=== PATIENT | female | born 1995 | race African-American/Black ===

== ENCOUNTER 2016-10-31 07:48 | Emergency (ER) | payer MEDICAID, OTHER ==
[~2016-10-31] VITALS: Ht 165.1 cm; Wt 89.0 kg
[2016-10-31] MEDS ORDERED: KETOROLAC 60MG/2ML VIAL IM ONE (09:30)
[2016-10-31 10:22] VITALS: BP 113/68
== END 2016-10-31 12:19 | disposition home or self-care (01) ==
LOC: ER 07:51
DX: S00.511A Abrasion of lip, initial encounter (principal); M54.5 Low back pain; M54.2 Cervicalgia; F17.210 Nicotine dependence, cigarettes, uncomplicated; V43.52XA Car driver injured in collision with other type car in traffic accident, initial encounter; Y93.89 Activity, other specified; Y92.488 Other paved roadways as the place of occurrence of the external cause
CPT/HCPCS: 72100; 72131; 81025; 96372; 99284; J1885; Z7610

== ENCOUNTER 2018-05-07 05:54 | Emergency (ER) | payer MEDICAID, OTHER ==
[~2018-05-07] VITALS: Ht 165.1 cm; Wt 88.8 kg
[2018-05-07 06:22] VITALS: BP 112/78
== END 2018-05-07 10:39 | disposition left against medical advice (07) ==
LOC: ER 06:52
DX: S61.512A Laceration without foreign body of left wrist, initial encounter (principal); W26.0XXA Contact with knife, initial encounter; Y93.89 Activity, other specified; Y92.89 Other specified places as the place of occurrence of the external cause; Y99.8 Other external cause status; Z53.21 Procedure and treatment not carried out due to patient leaving prior to being seen by health care provider

== ENCOUNTER 2018-11-19 10:31 | Emergency (ER) | payer SELFPAY ==
[~2018-11-19] VITALS: Ht 165.1 cm; Wt 102.0 kg
[2018-11-19 11:50] VITALS: BP 132/90
== END 2018-11-19 12:14 | disposition home or self-care (01) ==
LOC: ER 11:01
DX: J06.9 Acute upper respiratory infection, unspecified (principal); F12.10 Cannabis abuse, uncomplicated
CPT/HCPCS: 87070; 87430; 99283; Z7610

== ENCOUNTER 2019-06-07 17:06 | Emergency (ER) | payer SELFPAY ==
[~2019-06-07] VITALS: Ht 165.1 cm; Wt 82.0 kg
[2019-06-07] MEDS ORDERED: ACETAMINOPHEN 650MG/20.3ML UDC PO STA (20:27)
[2019-06-07 20:57] VITALS: BP 132/84
[2019-06-07] MEDS ORDERED: KETOROLAC 30MG/ML VIAL IV STA (20:58)
[2019-06-07] MEDS ORDERED: MAGNESIUM/ALUMINUM HYDROXIDE/SIMETHICONE 30ML UDC PO STA (20:58)
[2019-06-07] MEDS ORDERED: VISCOUS LIDOCAINE 2% 15 ML UDC PO STA (20:58)
== END 2019-06-07 20:58 | disposition home or self-care (01) ==
LOC: ER 17:06
DX: S00.93XA Contusion of unspecified part of head, initial encounter (principal); S43.401A Unspecified sprain of right shoulder joint, initial encounter; W10.9XXA Fall (on) (from) unspecified stairs and steps, initial encounter; Y93.9 Activity, unspecified; Y92.9 Unspecified place or not applicable
CPT/HCPCS: 99282

== ENCOUNTER 2019-12-26 20:45 | Emergency (ER) | payer MEDICAID ==
[~2019-12-26] VITALS: Ht 165.1 cm; Wt 91.0 kg
[2019-12-26 21:04] VITALS: BP 111/42
[2019-12-26 21:32] LABS: CLARITY URINE CLEAR (CLEAR); COLOR URINE YELLOW (YELLOW); KETONES URINE NEGATIVE (NEGATIVE); LEUKOCYTE ESTERASE URINE NEGATIVE (NEGATIVE); NITRITE URINE NEGATIVE (NEGATIVE); OCCULT BLOOD URINE 1+ (NEGATIVE); PH URINE 6.5 (4.5-8.0); PROTEIN URINE NEGATIVE (NEGATIVE); SPECIFIC GRAVITY URINE 1.006 (1.005-1.030); UROBILINOGEN URINE 0.2 E.U./dL (0.2-1.0)
[2019-12-26 22:32] LABS: BASOPHILS % 0.7 % (0.0-2.0); EOSINOPHILS % 5.6 % (0.0-5.0); HEMATOCRIT. 37.1 % (36.0-48.0); HEMOGLOBIN. 12.4 g/dL (12.0-16.0); LYMPHOCYTES % 30.3 % (20.0-50.0); MEAN CORPUSCULAR HEMOGLOBIN 30.4 pg (28.0-32.0); MEAN CORPUSCULAR VOLUME 91.1 fL (81.0-99.0); MEAN PLATELET VOLUME 8.1 fl (7.4-10.4); MONOCYTES % 8.8 % (2.0-8.0); NEUTROPHILS % 54.6 % (40.0-76.0); PLATELET 220 x1000/uL (130-400); RED BLOOD CELL COUNT 4.07 mill/uL (4.2-5.4); RED CELL DISTRIBUTION WIDTH 13.4 % (11.6-14.6)
[2019-12-26 22:50] LABS: CHLORIDE 108 mEq/L (98-107)
[2019-12-26 23:23] LABS: B-HCG QUANTITATIVE 41356 mIU/mL (<3)
== END 2019-12-26 23:39 | disposition home or self-care (01) ==
LOC: ER 20:45
DX: O20.0 Threatened abortion (principal); O26.891 Other specified pregnancy related conditions, first trimester; Z3A.01 Less than 8 weeks gestation of pregnancy
CPT/HCPCS: 36415; 76801; 80053; 81003; 81025; 84702; 85025; 86850; 86900; 99284

== ENCOUNTER 2020-01-09 07:05 | Emergency (ER) | payer MEDICAID ==
[~2020-01-09] VITALS: Ht 165.1 cm; Wt 92.0 kg
[2020-01-09] MEDS ORDERED: ACETAMINOPHEN 325MG TABLET PO PRN (07:45)
[2020-01-09 08:05] LABS: CLARITY URINE CLOUDY (CLEAR); COLOR URINE YELLOW (YELLOW); KETONES URINE NEGATIVE (NEGATIVE); LEUKOCYTE ESTERASE URINE NEGATIVE (NEGATIVE); NITRITE URINE NEGATIVE (NEGATIVE); OCCULT BLOOD URINE 3+ (NEGATIVE); PROTEIN URINE NEGATIVE (NEGATIVE); SPECIFIC GRAVITY URINE 1.018 (1.005-1.030); UROBILINOGEN URINE 0.2 E.U./dL (0.2-1.0)
[2020-01-09 08:09] LABS: BASOPHILS % 0.4 % (0.0-2.0); EOSINOPHILS % 5.6 % (0.0-5.0); HEMATOCRIT. 35.6 % (36.0-48.0); HEMOGLOBIN. 11.8 g/dL (12.0-16.0); MEAN CORPUSCULAR HEMOGLOBIN 29.8 pg (28.0-32.0); MEAN CORPUSCULAR VOLUME 90.2 fL (81.0-99.0); MEAN PLATELET VOLUME 7.9 fl (7.4-10.4); MONOCYTES % 7.5 % (2.0-8.0); NEUTROPHILS % 60.5 % (40.0-76.0); PLATELET 235 x1000/uL (130-400); RED BLOOD CELL COUNT 3.95 mill/uL (4.2-5.4); RED CELL DISTRIBUTION WIDTH 13.2 % (11.6-14.6)
[2020-01-09 08:14] LABS: CHLORIDE 107 mEq/L (98-107)
[2020-01-09 08:37] LABS: B-HCG QUANTITATIVE 75628 mIU/mL (<3)
[2020-01-09 10:03] VITALS: BP 108/61
== END 2020-01-09 10:05 | disposition home or self-care (01) ==
LOC: ER 07:05
DX: O20.0 Threatened abortion (principal); O26.891 Other specified pregnancy related conditions, first trimester; Z3A.08 8 weeks gestation of pregnancy
CPT/HCPCS: 36415; 76801; 80053; 81003; 81025; 84702; 85025; 86850; 86900; 93005; 99285

== ENCOUNTER 2020-01-31 22:17 | Emergency (ER) | payer MEDICAID ==
[~2020-01-31] VITALS: Ht 165.1 cm; Wt 92.0 kg
[2020-01-31 23:49] LABS: BASOPHILS % 0.6 % (0.0-2.0); EOSINOPHILS % 4.3 % (0.0-5.0); HEMATOCRIT. 33.5 % (36.0-48.0); HEMOGLOBIN. 11.3 g/dL (12.0-16.0); LYMPHOCYTES % 27.6 % (20.0-50.0); MEAN CORPUSCULAR HEMOGLOBIN 30.6 pg (28.0-32.0); MEAN CORPUSCULAR VOLUME 90.4 fL (81.0-99.0); MEAN PLATELET VOLUME 8.1 fl (7.4-10.4); MONOCYTES % 7.5 % (2.0-8.0); PLATELET 236 x1000/uL (130-400); RED CELL DISTRIBUTION WIDTH 13.5 % (11.6-14.6)
[2020-01-31 23:53] LABS: CHLORIDE 110 mEq/L (98-107)
[2020-02-01 00:31] LABS: B-HCG QUANTITATIVE 41347 mIU/mL (<3)
[2020-02-01 00:50] LABS: CLARITY URINE CLEAR (CLEAR); COLOR URINE YELLOW (YELLOW); KETONES URINE NEGATIVE (NEGATIVE); LEUKOCYTE ESTERASE URINE NEGATIVE (NEGATIVE); NITRITE URINE NEGATIVE (NEGATIVE); OCCULT BLOOD URINE NEGATIVE (NEGATIVE); PH URINE 6.5 (4.5-8.0); PROTEIN URINE NEGATIVE (NEGATIVE); SPECIFIC GRAVITY URINE 1.029 (1.005-1.030); UROBILINOGEN URINE 0.2 E.U./dL (0.2-1.0)
[2020-02-01 01:02] LABS: *COCAINE SCREEN URINE NEGATIVE (NEGATIVE); CANNABINOID URINE SCREEN NEGATIVE (NEGATIVE); METHADONE URINE SCREEN NEGATIVE (NEGATIVE); OPIATES URINE SCREEN NEGATIVE (NEGATIVE); PHENCYCLIDINE URINE SCREEN NEGATIVE (NEGATIVE)
[2020-02-01 01:03] LABS: *AMPHETAMINES SCREEN URINE NEGATIVE (NEGATIVE); *BARBITURATES SCREEN URINE NEGATIVE (NEGATIVE)
[2020-02-01 01:05] LABS: *BENZODIAZEPINES SCREEN URINE NEGATIVE (NEGATIVE)
[2020-02-01 02:21] VITALS: BP 118/61
== END 2020-02-01 02:30 | disposition home or self-care (01) ==
LOC: ER 22:41
DX: O20.0 Threatened abortion (principal); Z3A.12 12 weeks gestation of pregnancy
CPT/HCPCS: 36415; 76801; 80053; 80305; 81003; 81025; 84702; 85025; 99284

== ENCOUNTER 2020-05-08 10:15 | Emergency (ER) | payer MEDICAID ==
[~2020-05-08] VITALS: Ht 165.1 cm; Wt 104.0 kg
[2020-05-08] MEDS ORDERED: ALBUTEROL (0.083%) 2.5MG/3ML NEB HHN ONE (10:45)
[2020-05-08] MEDS ORDERED: FLUTICASONE PROPIONATE 50MCG/SPRAY BOTTLE BOTHNSTRLS SCH (11:00)
[2020-05-08 13:03] VITALS: BP 118/78
== END 2020-05-08 13:04 | disposition home or self-care (01) ==
LOC: ER 10:15
DX: O99.512 Diseases of the respiratory system complicating pregnancy, second trimester (principal); R06.02 Shortness of breath; R09.81 Nasal congestion; R06.2 Wheezing; Z3A.25 25 weeks gestation of pregnancy
CPT/HCPCS: 94640; 99283; Z7610

== ENCOUNTER 2020-07-17 19:54 | Observation (INO) | payer MEDICAID ==
[~2020-07-17] VITALS: Ht 165.1 cm; Wt 111.1 kg
[2020-07-17] MEDS ORDERED: PNV1TABL50 PO (21:07)
== END 2020-07-17 21:14 | disposition home or self-care (01) ==
LOC: 8 EST LDRP 19:54
PROVIDERS: ADMIT Obstetrics & Gynecology; ATTEND Obstetrics & Gynecology
DX: O26.893 Other specified pregnancy related conditions, third trimester (principal); R10.2 Pelvic and perineal pain; O36.8130 Decreased fetal movements, third trimester, not applicable or unspecified; Z3A.36 36 weeks gestation of pregnancy
CPT/HCPCS: 59025; 76815; 76818; G0378; 99281

== ENCOUNTER 2020-07-23 14:39 | Observation (INO) | payer MEDICAID ==
[~2020-07-23] VITALS: Ht 165.1 cm; Wt 111.1 kg
[~2020-07-23 14:39] MED LIST: PNV1TABL50 PO
[2020-07-23] MEDS ORDERED: ACYC200C PO (15:06)
== END 2020-07-23 16:30 | disposition home or self-care (01) ==
LOC: 8 EST LDRP 14:39
PROVIDERS: ADMIT Specialist; ATTEND Specialist
DX: O36.8130 Decreased fetal movements, third trimester, not applicable or unspecified (principal); Z3A.37 37 weeks gestation of pregnancy
CPT/HCPCS: 59025; 76815; 76818; G0378; 99281

== ENCOUNTER 2020-07-26 13:29 | Observation (INO) | payer MEDICAID ==
[~2020-07-26] VITALS: Ht 165.1 cm; Wt 112.0 kg
[~2020-07-26 13:29] MED LIST changes: +ACYC200C PO
[2020-07-26] MEDS ORDERED: LACTATED RINGERS 1,000 ML IV PRN (14:30)
[2020-07-26 14:46] LABS: CLARITY URINE CLEAR (CLEAR); COLOR URINE YELLOW (YELLOW); KETONES URINE NEGATIVE (NEGATIVE); LEUKOCYTE ESTERASE URINE 1+ (NEGATIVE); NITRITE URINE NEGATIVE (NEGATIVE); OCCULT BLOOD URINE NEGATIVE (NEGATIVE); PH URINE 7.5 (4.5-8.0); PROTEIN URINE NEGATIVE (NEGATIVE); UROBILINOGEN URINE 0.2 E.U./dL (0.2-1.0)
== END 2020-07-26 15:50 | disposition home or self-care (01) ==
LOC: 8 EST LDRP 13:29
PROVIDERS: ADMIT Obstetrics & Gynecology; ATTEND Obstetrics & Gynecology
DX: O62.9 Abnormality of forces of labor, unspecified (principal); Z3A.37 37 weeks gestation of pregnancy
CPT/HCPCS: 59025; 81003; G0378; 99281